=== PATIENT | male | born 1955 | race Caucasian/White ===

== ENCOUNTER 2022-04-08 05:36 | Outpatient (CLI) | payer BC, MEDICARE ==
[~2022-04-08] VITALS: Ht 170 cm; Wt 82.5 kg
[2022-04-12] MEDS ORDERED: METF-397 PO (08:34)
== END 2022-04-12 09:22 | disposition home or self-care (01) ==
LOC: PREOP 05:36
PROVIDERS: ATTEND Otolaryngology Otolaryngology/Facial Plastic Surgery
DX: Z01.818 Encounter for other preprocedural examination (principal)

== ENCOUNTER 2022-04-15 07:14 | Day surgery (SDC) | payer MEDICARE ==
[2022-04-15] VITALS (12 sets, daily range): BP systolic 122–162; BP diastolic 74–96
[~2022-04-15] VITALS: Ht 170 cm; Wt 82.5 kg
[~2022-04-15 07:14] MED LIST: METF-397 PO
[2022-04-15] MEDS ORDERED: AMPICILLIN/SULBACTAM INJECTION 1.5 GM in NS (IVPB) 100 ML IV ONE (07:30)
[2022-04-15] MEDS: LACTATED RINGERS 1,000 ML IV PRN ×2 (07:52→10:30)
[2022-04-15 08:01] LABS: BASOPHILS % (AUTO) 1 % (0-10); EOSINOPHILS # (AUTO) 0.1 10^3/uL (0.0-0.3); EOSINOPHILS % (AUTO) 2 % (0-10); HEMATOCRIT 43 % (40-54); HEMOGLOBIN 15.1 g/dL (13.3-17.7); LYMPHOCYTES # (AUTO) 1.1 10^3/uL (1.0-4.0); LYMPHOCYTES % (AUTO) 18 % (12-44); MEAN CORPUSCULAR HEMOGLOBIN 34 pg (25-34); MEAN CORPUSCULAR HGB CONC 35 g/dL (32-36); MEAN CORPUSCULAR VOLUME 95 fL (80-99); MEAN PLATELET VOLUME 9.1 fL (9.0-12.2); MONOCYTES # (AUTO) 0.5 10^3/uL (0.0-1.0); MONOCYTES % (AUTO) 8 % (0-12); NEUTROPHILS # (AUTO) 4.5 10^3/uL (1.8-7.8); NEUTROPHILS % (AUTO) 71 % (42-75); PLATELET COUNT 235 10^3/uL (130-400); WHITE BLOOD COUNT 6.4 10^3/uL (4.3-11.0)
[2022-04-15] MEDS ORDERED: PHENYLEPHRINE 0.5% NASAL SPR (NEO-SYNEPHRINE) REG ONE (09:01)
[2022-04-15] MEDS ORDERED: BSS 15 ML ONE (09:01)
[2022-04-15] MEDS ORDERED: COCAINE HCL 4% 2 ML SYR ONE (09:01)
[2022-04-15] MEDS ORDERED: LIDOCAINE/EPI 2% 1:200,00 (XYLOCAINE) 20 ML VIAL ONE (09:02)
[2022-04-15] MEDS ORDERED: LIDOCAINE PF 2% 5 ML (XYLOCAINE) VIAL ONE (09:38)
[2022-04-15] MEDS ORDERED: SEVOFLURANE (ULTANE) 15 ML INHAL SOLN ONE ×2 (09:38→11:16)
[2022-04-15] MEDS ORDERED: MIDAZOLAM 2 MG/2 ML (VERSED) VIAL ONE (09:38)
[2022-04-15] MEDS ORDERED: fentaNYL INJ 100 MCG/2 ML AMP ONE (09:38)
[2022-04-15] MEDS ORDERED: ROCURONIUM 50 MG/5 ML (ZEMURON) VIAL IV ONE (09:38)
[2022-04-15] MEDS ORDERED: ONDANSETRON 4 MG/2 ML (SDV) Z0FRAN ONE (09:38)
[2022-04-15] MEDS ORDERED: proPOfol 200 MG/20 ML (DIPRIVAN) VIAL IV ONE (09:38)
--- NOTE | 2022-04-15 09:56 | Progress Note-Pre Operative ---
Pre-Operative Progress Note H&P Reviewed The H&P was reviewed, patient examined and no changes noted. Date Seen by Provider: April 15, 2022 Time Seen by Provider: : Date H&P Reviewed: April 15, 2022 Time H&P Reviewed: :30 Pre-Operative Diagnosis: Bilat Chronci Sinusitis with nasal polyps, dev septum hyper inf turbs ONEYDA WALTERS MD April 15, 2022 09:56
--- NOTE | 2022-04-15 09:57 | Progress Note-Post Operative ---
Post-Operative Progess Note Surgeon (s)/Justowriter Operator (s) Surgeon ONEYDA WALTERS MD Justowriter Operator n/a Pre-Operative Diagnosis Bilat Chronci Sinusitis with nasal polyps, dev septum hyper inf turbs Post-Operative Diagnosis same Post-Op Procedure Note Date of Procedure: April 15, 2022 Name of Procedure Performed: Bilat ESS, Nasal Septoplasty, Bilat red of INf Turbs Description & Findings Description and Findings: n/a Anesthesia Type get Estimated Blood Loss minimal Packing none. Specimen(s) collected/removed bilat chronic sinus diseae, nasal polyps, septum ONEYDA WALTERS MD April 15, 2022 09:57
[2022-04-15] MEDS ORDERED: D5 1/2 NS W/KCL 20 MEQ/L 1,000 ML IV SCH (10:00)
[2022-04-15] MEDS ORDERED: PROMETHAZINE INJ 25 MG/ML (PHENERGAN) AMP IVP PRN (10:00)
[2022-04-15] MEDS ORDERED: HYDROcodone/APAP 5 MG/325 MG (LORTAB) TAB PO PRN (10:00)
[2022-04-15] MEDS ORDERED: PHENYLEPHRINE 100 MCG/ML 10 ML (ANESTHESIA) SYR ONE (10:02)
[2022-04-15] MEDS ORDERED: NEOSTIGMINE 3 MG/3 ML VIAL ONE (10:42)
[2022-04-15] MEDS ORDERED: GLYCOPYRROLATE 0.2 MG/ML (ROBINUL) 2 ML VIAL ONE (10:42)
[2022-04-15] MEDS ORDERED: ONDANSETRON 4 MG/2 ML (SDV) Z0FRAN IVP PRN (11:45)
[2022-04-15] MEDS ORDERED: morphine INJ 10 MG/ML 1ML (SYR OR VIAL) IVP ONE (11:45)
[2022-04-15] MEDS ORDERED: HYDROmorphone 2 MG/ML VIAL (DILAUDID) IV ONE (11:45)
[2022-04-15] MEDS ORDERED: ACHD5005 PO (13:35)
--- NOTE | 2022-04-15 14:26 | Anesthesia-General Post-Op ---
General Patient Condition Mental Status/LOC: Same as Preop Cardiovascular: Satisfactory Nausea/Vomiting: Absent Respiratory: Satisfactory Pain: Controlled Complications: Absent Post Op Complications Complications None Follow Up Care/Instructions Patient Instructions None needed. Anesthesia/Patient Condition Patient Condition Patient is doing well, no complaints, stable vital signs, no apparent adverse anesthesia problems. No complications reported per nursing. EFRAIN JOHNSON CRNA April 15, 2022 14:26
== END 2022-04-15 14:30 | disposition home or self-care (01) ==
LOC: SDC 07:14
PROVIDERS: ATTEND Otolaryngology Otolaryngology/Facial Plastic Surgery
DX: J32.4 Chronic pansinusitis (principal); J34.2 Deviated nasal septum; J33.9 Nasal polyp, unspecified; J34.89 Other specified disorders of nose and nasal sinuses; J34.3 Hypertrophy of nasal turbinates
CPT/HCPCS: 36415; 85025; 87081; 93005